=== PATIENT | female | born 1965 | race Caucasian/White ===

== ENCOUNTER 2017-10-19 11:28 | Observation (INO) | payer MEDICAID, OTHER ==
[2017-10-19 11:29] VITALS: BMI 28.3
--- NOTE | 2017-10-19 12:49 | ED PDOC ---
Arrival/HPI - General Chief Complaint: Palpitations Time Seen by Provider: 10/19/17 11:35 Historian: Patient - History of Present Illness Narrative History of Present Illness (Text): 10/19/17 12:49 Kamala Alaniz is a 52 year old female, whose past medical history includes asthma, who presents to the Emergency department complaining of palpitations and dizziness. 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 Patient states symptoms resolved after she relaxed, but notes she was unable to go back to sleep. Patients states this morning, her palpitations and dizziness returned, with dyspnea on exertion. She states that earlier this morning she had some left sided chest discomfort, left sided neck pain. Reports intermittent headaches for several months. While getting triaged, experience episode of dizziness and lightheadedness. Symptom Onset: Gradual Symptom Course: Unchanged Activities at Onset: Light Context: Home Past Medical History - Provider Review Nursing Documentation Reviewed: Yes - Infectious Disease Hx of Infectious Diseases: None - Tetanus Immunization Tetanus Immunization: Unknown - Reproductive Menopause: Yes - Cardiac Hx Cardiac Disorders: No - Pulmonary Hx Respiratory Disorders: Yes Hx Asthma: Yes - Neurological Hx Neurological Disorder: No - HEENT Hx HEENT Disorder: No - Renal Hx Renal Disorder: No - Endocrine/Metabolic Hx Endocrine Disorders: No - Hematological/Oncological Hx Anemia: Yes - Integumentary Hx Dermatological Disorder: No - Musculoskeletal/Rheumatological Hx Musculoskeletal Disorders: No - Gastrointestinal Hx Gastrointestinal Disorders: No - Genitourinary/Gynecological Hx Genitourinary Disorders: No - Psychiatric Hx Psychophysiologic Disorder: No Hx Substance Use: No - Past Surgical History Past Surgical History: No Previous - Anesthesia Hx Anesthesia: No - Suicidal Assessment Feels Threatened In Home Enviroment: No Family/Social History - Physician Review Nursing Documentation Reviewed: Yes Family/Social History: Unknown Family HX Smoking Status: Never Smoked Hx Alcohol Use: No Hx Substance Use: No Allergies/Home Meds Allergies/Adverse Reactions: Allergies No Known Allergies Allergy (Verified 11/23/14 22:47) Review of Systems - Review of Systems Constitutional: Fatigue. absent: Fevers Eyes: absent: Photophobia ENT: absent: Sore Throat Respiratory: absent: SOB, Cough, Wheezing Cardiovascular: Chest Pain, Palpitations, SCOTT. absent: Syncope Gastrointestinal: absent: Abdominal Pain, Diarrhea, Nausea, Vomiting Genitourinary Female: absent: Dysuria, Frequency, Hematuria, Urine Output Changes Musculoskeletal: Neck Pain (+left-sided neck pain) Skin: absent: Rash Neurological: Headache, Dizziness. absent: Focal Weakness, Gait Changes Endocrine: absent: Polyuria Hemo/Lymphatic: absent: Easy Bleeding Psychiatric: absent: Depression Physical Exam - Physical Exam Narrative Physical Exam (Text): Head: Atraumatic. Normocephalic. Eyes: PERRL. EOMI. Conjunctivae are not pale. ENT: Mucous membranes are moist and intact. Oropharynx is clear and symmetric. Neck: Supple. Mild left-sided paraspinal tenderness Full ROM. No JVD. No lymphadenopathy. Cardiovascular: Regular rate. Regular rhythm. No murmurs, rubs, or gallops. Distal pulses are 2+ and symmetric. Pulmonary/Chest: No evidence of respiratory distress. Clear to auscultation bilaterally. No wheezing, rales or rhonchi. Abdominal: Soft and non-distended. There is no tenderness. No rebound, guarding, or rigidity. No organomegaly. Good bowel sounds. Back: No CVA tenderness. No midline tenderness. Extremities: No edema. No cyanosis. No clubbing. Full range of motion in all extremities. No calf tenderness. Skin: Skin is warm and dry. No petechiae. No purpura. Neurological: Alert, awake, and oriented. No slurred speech. No facial droop. Motor and sensory exam intact. No pronator drift. Normal finger to nose. Visual acuity and visual tillman intact. Psychiatric: Good eye contact. Normal interaction, affect, and behavior. Vital Signs Reviewed: Yes Vital Signs Temp Pulse Resp BP Pulse Ox 10/19/17 16:38 75 18 122/63 100 10/19/17 12:25 98.1 F 70 16 115/78 96 Temperature: Afebrile Blood Pressure: Normal Pulse: Regular Respiratory Rate: Normal Appearance: Positive for: Well-Appearing, Non-Toxic, Comfortable Pain Distress: None Mental Status: Positive for: Alert and Oriented X 3 Medical Decision Making ED Course and Treatment: 10/19/17 12:49 Impression: 52 year old female complaining of palpitations, dizziness, headache, and dyspnea. Differential Diagnosis included but are not limited to: CAD vs. arrhythmia vs. PS vs. anemia Plan: -- CT Head w/o contrast -- EKG -- Chest X-ray -- Labs, cardiac enzymes, D-dimer -- Urinalysis -- Reassess and disposition Progress Notes: Patient on initial evaluation is found to have sensation of palpitations, however on monitor she is in normal sinus rhythm. No pleuritic pain. No hypoxa. Denies smoking. Denies family hx of CAD. No prolonged immobilization. No calf pain or swelling. Complains of headache, ct head ordered as persistent and itnermittent for several months. 10/19/17 15:16 CT Head Findings: HEMORRHAGE: No acute parenchymal, subarachnoid nor extra-axial hemorrhage. BRAIN: No mass effect or edema. No atrophy or chronic microvascular ischemic changes. VENTRICLES: Unremarkable. No hydrocephalus. CALVARIUM: No acute calvarial fractures. PARANASAL SINUSES: Unremarkable as visualized. No significant inflammatory changes. . Note is made of of focal leftward deviation of the nasal septum with associated left- sided septal bone spur. MASTOID AIR CELLS: Unremarkable as visualized. No inflammatory changes. OTHER FINDINGS: None. IMPRESSION: No acute intracranial hemorrhage. Chest X-ray Findings: LUNGS: Clear. PLEURA: No pneumothorax or pleural fluid seen. CARDIOVASCULAR: Normal. OSSEOUS STRUCTURES: No significant abnormalities. VISUALIZED UPPER ABDOMEN: Normal. OTHER FINDINGS: None. IMPRESSION: No active disease. Will admit for evaluation of chest pain and palpitations. Ddimer and cxr unremarkable. Will admit to observation. 10/19/17 15:[address] Christensen, who is aware and agrees with plan. Accepts pt in to hospitalist service. Pt will go to Telemetry observation for palpitations and chest pain. - Lab Interpretations Lab Results: 10/19/17 13:51 10/19/17 14:24 Lab Results 10/19/17 14:24: Triglycerides 126, Cholesterol 194, LDL Cholesterol Direct 102, HDL Cholesterol 49 10/19/17 14:24: TSH 3rd Generation 1.49 10/19/17 14:24: Sodium 145, Potassium 4.7, Chloride 106, Carbon Dioxide 28, Anion Gap 16, BUN 15, Creatinine 0.8, Est GFR ( Amer) > 60, Est GFR (Non- Af Amer) > 60, Random Glucose 89, Calcium 9.4, Total Bilirubin 0.4, AST 24, ALT 20, Alkaline Phosphatase 63, Lactate Dehydrogenase 488, Total Creatine Kinase 54 , Troponin I < 0.01, Total Protein 7.5, Albumin 4.3, Globulin 3.2, Albumin/ Globulin Ratio 1.4 10/19/17 13:51: Urine Color Yellow, Urine Appearance Sl cloudy, Urine pH 7.0, Ur Specific [place] 1.020, Urine Protein 30 H, Urine Glucose (UA) Negative, Urine Ketones Negative, Urine Blood Negative, Urine Nitrate Negative, Urine Bilirubin Negative, Urine Urobilinogen 0.2, Ur Leukocyte Esterase Moderate H, Urine RBC Negative, Urine WBC 2 - 5, Urine Bacteria Few, Urine HCG, Qual Negative 10/19/17 13:51: PT 12.3, INR 1.07, APTT 28.0, D-Dimer, Quantitative < 200 10/19/17 13:51: WBC 7.5, RBC 4.79, Hgb 12.9, Hct 39.8, MCV 83.1, MCH 26.9, MCHC 32.4, RDW 15.1 H, Plt Count 196, MPV 11.7 H, Gran % 63.6, Lymph % (Auto) 29.0, [place] % (Auto) 3.7, Eos % (Auto) 3.6, Baso % (Auto) 0.1, Gran # 4.75, Lymph # ( Auto) 2.2, [place] # (Auto) 0.3, Eos # (Auto) 0.3, Baso # (Auto) 0.01 I have reviewed the lab results: Yes - RAD Interpretation Radiology Orders: 10/19/17 12:50 HEAD W/O CONTRAST [CT] Stat CHEST ONE VIEW [RAD] Stat Neurosurgical Nurse: Radiologist - EKG Interpretation EKG Interpretation (Text): 10/19/17 17:11 EKG at 11:36 normal sinus rhythm rate of 80 with nonspecific t wave abnormality Interpreted by ED Physician: Yes Type: 12 lead EKG - Medication Orders Current Medication Orders: Albuterol Sulfate (Albuterol 0.083% Inhal Kristin (2.5 Mg/3 Ml) Ud) 2.5 mg IH [id number] PRN PRN Reason: Shortness of Breath Discontinued Medications Aspirin (Aspirin Chewable) 81 mg PO STAT STA Stop: 10/19/17 17:12 Last Admin: 10/19/17 17:35 Dose: 81 mg - Scribe Statement The provider has reviewed the documentation as recorded by the Michelleibhermann Armijo All medical record entries made by the Michelleibhermann were at my direction and personally dictated by me. I have reviewed the chart and agree that the record accurately reflects my personal performance of the history, physical exam, medical decision making, and the department course for this patient. I have also personally directed, reviewed, and agree with the discharge instructions and disposition. Disposition/Present on Arrival - Present on Arrival Any Indicators Present on Arrival: No History of DVT/PE: No History of Uncontrolled Diabetes: No Urinary Catheter: No History of Decub. Ulcer: No History Surgical Site Infection Following: None - Disposition Have Diagnosis and Disposition been Completed?: Yes Diagnosis: Chest pain, Palpitations Disposition: HOSPITALIZED Disposition Time: 15:30 Patient Plan: Admission, Observation, Telemetry Patient Problems: Current Active Problems Problem Status Onset Chest pain Acute Palpitations Acute Condition: FAIR
[2017-10-19 14:00] LABS: BASO # 0.01 K/mm3 (0.0-2.0); BASO % 0.1 % (0.0-3.0); EOS # 0.3 (0.0-0.7); EOS % 3.6 % (1.5-5.0); GRAN # 4.75 (1.4-6.5); GRAN % 63.6 % (50.0-68.0); HEMOGLOBIN 12.9 g/dL (12.0-16.0); LYMPH # 2.2 (1.2-3.4); MEAN CELL VOLUME 83.1 fl (80.0-105.0); MEAN CORPUSCULAR HEMOGLOBIN 26.9 pg (25.0-35.0); MEAN CORPUSCULAR HGB CONC 32.4 g/dl (31.0-37.0); MEAN PLATELET VOLUME 11.7 fl (7.0-11.0); MONO # 0.3 (0.1-0.6); MONO % 3.7 % (1.0-6.0); RBC 4.79 10^6/uL (3.5-6.1); RED CELL DISTRIBUTION WIDTH 15.1 % (11.5-14.5); URINE BILIRUBIN NEGATIVE (NEGATIVE); URINE BLOOD NEGATIVE (NEGATIVE); URINE GLUCOSE (UA) NEGATIVE (NEGATIVE); URINE LEUKOCYTE ESTERASE MODERATE Leu/uL (NEGATIVE); URINE PROTEIN 30 mg/dL (<30 mg/dL); URINE UROBILINOGEN 0.2 E.U./dL (<1 E.U./dL); WHITE BLOOD COUNT 7.5 10^3/ul (4.5-11.0)
[2017-10-19 14:06] LABS: URINE APPEARANCE SL CLOUDY (CLEAR); URINE COLOR YELLOW (YELLOW)
[2017-10-19 14:11] LABS: HCG,QUALITATIVE URINE NEGATIVE (NEGATIVE)
[2017-10-19 14:15] LABS: URINE BACTERIA FEW (NEG); URINE RBC NEGATIVE /hpf (0-2)
[2017-10-19 14:20] LABS: D DIMER < 200 ng/mL (0-243); INR 1.07 (0.93-1.08); PROTHROMBIN TIME 12.3 SECONDS (9.4-12.5)
[2017-10-19 14:40] LABS: ALB/GLOB RATIO 1.4 (1.1-1.8); ALBUMIN 4.3 g/dL (3.0-4.8); ALT/SGPT 20 U/L (7-56); AST/SGOT 24 U/L (14-36); BLOOD UREA NITROGEN 15 mg/dL (7-21); CALCIUM 9.4 mg/dL (8.4-10.5); GFR AFRICAN-AMERICAN > 60; GFR NON-AFRICAN AMERICAN > 60
[2017-10-19 14:51] LABS: TROPONIN I < 0.01 ng/mL
--- NOTE | 2017-10-19 15:17 | CT ---
PROCEDURE: CT HEAD WITHOUT CONTRAST. HISTORY: Dizzy, headache COMPARISON: None available. TECHNIQUE: Axial computed tomography images were obtained through the head/brain without intravenous contrast. Radiation dose: Total exam DLP = 902.09 mGy-cm. This CT exam was performed using one or more of the following dose reduction techniques: Automated exposure control, adjustment of the mA and/or kV according to patient size, and/or use of iterative reconstruction technique. FINDINGS: HEMORRHAGE: No acute parenchymal, subarachnoid nor extra-axial hemorrhage. BRAIN: No mass effect or edema. No atrophy or chronic microvascular ischemic changes. VENTRICLES: Unremarkable. No hydrocephalus. CALVARIUM: No acute calvarial fractures. PARANASAL SINUSES: Unremarkable as visualized. No significant inflammatory changes. . Note is made of of focal leftward deviation of the nasal septum with associated left-sided septal bone spur. MASTOID AIR CELLS: Unremarkable as visualized. No inflammatory changes. OTHER FINDINGS: None. IMPRESSION: No acute intracranial hemorrhage.
--- NOTE | 2017-10-19 15:54 | RAD ---
PROCEDURE: CHEST RADIOGRAPH, 1 VIEW HISTORY: Shortness of breath COMPARISON: None available. FINDINGS: LUNGS: Clear. PLEURA: No pneumothorax or pleural fluid seen. CARDIOVASCULAR: Normal. OSSEOUS STRUCTURES: No significant abnormalities. VISUALIZED UPPER ABDOMEN: Normal. OTHER FINDINGS: None. IMPRESSION: No active disease.
--- NOTE | 2017-10-19 16:48 | CP.PCM.HP ---
History of Present Illness - History of Present Illness History of Present Illness: 52 year old female with a past medical history of asthma who presents with an episode of palpitation, dizziness, and light headedness today. She reports lying down and then experiencing sudden-onset palpitations and dyspnea that last for 5-6 minutes. She reports having a similar episode two weeks ago and came to this here ED. She is worried that it is her heart. She denies nausea, vomiting, syncope, trauma, any changes in medication or lifestyle. She denies any relieving, worsening, or precipitating factors in regards to the palpitations She reports her last asthma attack was 3 weeks ago and that she treats it with albuterol. Patient also notes she has been experiencing intermittent left-sided headaches for the past month, for which she has been evaluated for in the past. Patient denies any chest pain, abdominal pain, polyuria, dysuria,nausea, vomiting, diarrhea, back pain, focal deficits, or any other complaints. Past Medical History: Asthma Past Surgical history: tubal ligation Allergies: NKDA and NKA Family history: Mother had diabetes, high cholesterol, and heart problems Social: does not work, raising two kids or looks after two kids; denies alcohol , tobacco, or illicit drug use Two separate Burmese translation services were utilized: [id number] Present on Admission - Present on Admission Any Indicators Present on Admission: No Review of Systems - Cardiovascular Cardiovascular: Lightheadedness, Rapid Heart Rate. absent: Dyspnea on Exertion - Respiratory Respiratory: Dyspnea - Gastrointestinal Gastrointestinal: absent: Change in Bowel Habits, Melena, Vomiting - Genitourinary Genitourinary: absent: Change in Urinary Stream, Difficulty Urinating, Hematuria - Musculoskeletal Musculoskeletal: absent: Abnormal Gait, Arthralgias, Joint Swelling - Integumentary Integumentary: absent: Alopecia, Bleeding Lesions, Pruritus, Rash - Neurological Neurological: Dizziness. absent: Abnormal Hearing, Burning Sensations, Numbness - Psychiatric Psychiatric: absent: Confusion, Hopelessness - Endocrine Endocrine: absent: Change in Body Appearance, Polydipsia - Hematologic/Lymphatic Hematologic: absent: Easy Bleeding, Easy Bruising Past Patient History - Infectious Disease Hx of Infectious Diseases: None - Tetanus Immunizations Tetanus Immunization: Unknown - Past Social History Smoking Status: Never Smoked - CARDIAC Hx Cardiac Disorders: No - PULMONARY Hx Respiratory Disorders: Yes Hx Asthma: Yes - NEUROLOGICAL Hx Neurological Disorder: No - HEENT Hx HEENT Problems: No - RENAL Hx Chronic Kidney Disease: No - ENDOCRINE/METABOLIC Hx Endocrine Disorders: No - HEMATOLOGICAL/ONCOLOGICAL Hx Anemia: Yes - INTEGUMENTARY Hx Dermatological Problems: No - MUSCULOSKELETAL/RHEUMATOLOGICAL Hx Musculoskeletal Disorders: No - GASTROINTESTINAL Hx Gastrointestinal Disorders: No - GENITOURINARY/GYNECOLOGICAL Hx Genitourinary Disorders: No - PSYCHIATRIC Hx Psychophysiologic Disorder: No Hx Substance Use: No - ANESTHESIA Hx Anesthesia: No Meds Allergies/Adverse Reactions: Allergies Allergy/AdvReac Type Severity Reaction Status Date / Time No Known Allergies Allergy Verified 11/23/14 22:47 Physical Exam - Constitutional Additional comments: anxious - Head Exam Head Exam: ATRAUMATIC, NORMOCEPHALIC - Eye Exam Additional comments: left eye injected and red - ENT Exam ENT Exam: Mucous Membranes Moist - Neck Exam Neck exam: Positive for: Normal Inspection - Respiratory Exam Respiratory Exam: Clear to Auscultation Bilateral. absent: Wheezes Additional comments: RR 18 - Cardiovascular Exam Cardiovascular Exam: RRR, +S1, +S2 - GI/Abdominal Exam GI & Abdominal Exam: Normal Bowel Sounds, Soft - Extremities Exam Extremities exam: Positive for: normal inspection. Negative for: calf tenderness - Back Exam Back exam: NORMAL INSPECTION. absent: CVA tenderness (L), CVA tenderness (R) - Neurological Exam Neurological exam: Alert, Oriented x3 - Psychiatric Exam Psychiatric exam: Anxious - Skin Skin Exam: Dry, Intact, Normal Color, Warm Results - Vital Signs Recent Vital Signs: Last Vital Signs Temp 98.1 F 10/19/17 12:25 Pulse 70 10/19/17 12:25 Resp 16 10/19/17 12:25 BP 115/78 10/19/17 12:25 Pulse Ox 96 10/19/17 12:25 - Labs Result Diagrams: 10/19/17 13:51 10/19/17 14:24 Labs: Laboratory Results - last 24 hr 10/19/17 10/19/17 10/19/17 13:51 13:51 13:51 WBC 7.5 RBC 4.79 Hgb 12.9 Hct 39.8 MCV 83.1 MCH 26.9 MCHC 32.4 RDW 15.1 H Plt Count 196 MPV 11.7 H Gran % 63.6 Lymph % (Auto) 29.0 [place] % (Auto) 3.7 Eos % (Auto) 3.6 Baso % (Auto) 0.1 Gran # 4.75 Lymph # (Auto) 2.2 [place] # (Auto) 0.3 Eos # (Auto) 0.3 Baso # (Auto) 0.01 PT 12.3 INR 1.07 APTT 28.0 D-Dimer, Quantitative < 200 Sodium Potassium Chloride Carbon Dioxide Anion Gap BUN Creatinine Est GFR ( Amer) Est GFR (Non-Af Amer) Random Glucose Calcium Total Bilirubin AST ALT Alkaline Phosphatase Lactate Dehydrogenase Total Creatine Kinase Troponin I Total Protein Albumin Globulin Albumin/Globulin Ratio Urine Color Yellow Urine Appearance Sl cloudy Urine pH 7.0 Ur Specific [place] 1.020 Urine Protein 30 H Urine Glucose (UA) Negative Urine Ketones Negative Urine Blood Negative Urine Nitrate Negative Urine Bilirubin Negative Urine Urobilinogen 0.2 Ur Leukocyte Esterase Moderate H Urine RBC Negative Urine WBC 2 - 5 Urine Bacteria Few Urine HCG, Qual Negative 10/19/17 14:24 WBC RBC Hgb Hct MCV MCH MCHC RDW Plt Count MPV Gran % Lymph % (Auto) [place] % (Auto) Eos % (Auto) Baso % (Auto) Gran # Lymph # (Auto) [place] # (Auto) Eos # (Auto) Baso # (Auto) PT INR APTT D-Dimer, Quantitative Sodium 145 Potassium 4.7 Chloride 106 Carbon Dioxide 28 Anion Gap 16 BUN 15 Creatinine 0.8 Est GFR ( Amer) > 60 Est GFR (Non-Af Amer) > 60 Random Glucose 89 Calcium 9.4 Total Bilirubin 0.4 AST 24 ALT 20 Alkaline Phosphatase 63 Lactate Dehydrogenase 488 Total Creatine Kinase 54 Troponin I < 0.01 Total Protein 7.5 Albumin 4.3 Globulin 3.2 Albumin/Globulin Ratio 1.4 Urine Color Urine Appearance Urine pH Ur Specific [place] Urine Protein Urine Glucose (UA) Urine Ketones Urine Blood Urine Nitrate Urine Bilirubin Urine Urobilinogen Ur Leukocyte Esterase Urine RBC Urine WBC Urine Bacteria Urine HCG, Qual Assessment & Plan - Assessment and Plan (Free Text) Assessment: 52 year old female with asthma who presents with two episodes of palpitations, light-headedness, and dizziness in a 2 week span. Plan: 1) Palpitations - EKG shows NSR, with possible left atrial enlargement, non-specific T-wave abnormalities - Chest X-ray interpreted as no active disease - Cardiology consulted, Dr. Winston - Serial troponins, initial negative - Transthoracic Echocardiogram ordered - TSH, HgA1c, Lipid Panel - Vitals q4h 2) Asthma - Albuterol q4h PRN for shortness of breath 3) DVT/GI prophylaxis - SCD - GI prophylaxis no indicated at this time - Date & Time Date: 10/19/17 Time: 16:52
[2017-10-19 16:54] LABS: HDL CHOLESTEROL 49 mg/dL (29-60)
[2017-10-19 17:05] LABS: LDL CHOLESTEROL 102 mg/dL (0-129)
[2017-10-19] MEDS ORDERED: Albuterol 0.083% Inhal Sol (2.5 mg/3 mL) UD IH PRN (17:07)
[2017-10-19 21:35] LABS: TROPONIN I < 0.01 ng/mL
--- NOTE | 2017-10-19 21:43 | CARD ---
APPROVED REPORT EKG Measurement Heart [id number] <Conclusion> Normal sinus rhythm Possible Left atrial enlargement Nonspecific T wave abnormality Abnormal ECG
[2017-10-20 06:09] VITALS: O2SAT 96
[2017-10-20 06:47] LABS: BASO # 0.01 K/mm3 (0.0-2.0); BASO % 0.2 % (0.0-3.0); EOS # 0.4 (0.0-0.7); EOS % 5.9 % (1.5-5.0); GRAN # 3.27 (1.4-6.5); GRAN % 54.7 % (50.0-68.0); HEMOGLOBIN 12.4 g/dL (12.0-16.0); LYMPH # 1.9 (1.2-3.4); LYMPH % 32.5 % (22.0-35.0); MEAN CELL VOLUME 83.4 fl (80.0-105.0); MEAN CORPUSCULAR HEMOGLOBIN 26.8 pg (25.0-35.0); MEAN CORPUSCULAR HGB CONC 32.1 g/dl (31.0-37.0); MONO # 0.4 (0.1-0.6); MONO % 6.7 % (1.0-6.0); RBC 4.63 10^6/uL (3.5-6.1); RED CELL DISTRIBUTION WIDTH 15.2 % (11.5-14.5)
[2017-10-20 07:13] LABS: TROPONIN I < 0.01 ng/mL
[2017-10-20 07:32] LABS: ALB/GLOB RATIO 1.3 (1.1-1.8); ALBUMIN 3.9 g/dL (3.0-4.8); ALT/SGPT 26 U/L (7-56); AST/SGOT 25 U/L (14-36); BLOOD UREA NITROGEN 15 mg/dL (7-21); CALCIUM 9.2 mg/dL (8.4-10.5); GFR AFRICAN-AMERICAN > 60; GFR NON-AFRICAN AMERICAN > 60
--- NOTE | 2017-10-20 12:25 | CP.PCM.DIS ---
Provider - Provider Date of Admission: 10/19/17 15:39 Attending physician: Wayne Cazares MD Primary care physician: Dina Boss MD Consults: Dr. Chandana Winston Time Spent in preparation of Discharge (in minutes): 35 Hospital Course - Lab Results Lab Results: Most Recent Lab Values WBC 6.0 10^3/ul (4.5-11.0) 10/20/17 05:30 RBC 4.63 10^6/uL (3.5-6.1) 10/20/17 05:30 Hgb 12.4 g/dL (12.0-16.0) 10/20/17 05:30 Hct 38.6 % (36.0-48.0) 10/20/17 05:30 MCV 83.4 fl (80.0-105.0) 10/20/17 05:30 MCH 26.8 pg (25.0-35.0) 10/20/17 05:30 MCHC 32.1 g/dl (31.0-37.0) 10/20/17 05:30 RDW 15.2 % (11.5-14.5) H 10/20/17 05:30 Plt Count 177 10^3/uL (120.0-450.0) 10/20/17 05:30 MPV 12.0 fl (7.0-11.0) H 10/20/17 05:30 Gran % 54.7 % (50.0-68.0) 10/20/17 05:30 Lymph % (Auto) 32.5 % (22.0-35.0) 10/20/17 05:30 [place] % (Auto) 6.7 % (1.0-6.0) H 10/20/17 05:30 Eos % (Auto) 5.9 % (1.5-5.0) H 10/20/17 05:30 Baso % (Auto) 0.2 % (0.0-3.0) 10/20/17 05:30 Gran # 3.27 (1.4-6.5) 10/20/17 05:30 Lymph # (Auto) 1.9 (1.2-3.4) 10/20/17 05:30 [place] # (Auto) 0.4 (0.1-0.6) 10/20/17 05:30 Eos # (Auto) 0.4 (0.0-0.7) 10/20/17 05:30 Baso # (Auto) 0.01 K/mm3 (0.0-2.0) 10/20/17 05:30 PT 12.3 SECONDS (9.4-12.5) 10/19/17 13:51 INR 1.07 (0.93-1.08) 10/19/17 13:51 APTT 28.0 Seconds (25.1-36.5) 10/19/17 13:51 D-Dimer, Quantitative < 200 ng/mL (0-243) 10/19/17 13:51 Sodium 144 mmol/L (132-148) 10/20/17 05:30 Potassium 4.4 mmol/L (3.6-5.0) 10/20/17 05:30 Chloride 108 mmol/L (98-107) H 10/20/17 05:30 Carbon Dioxide 27 mmol/L (21-33) 10/20/17 05:30 Anion Gap 14 (10-20) 10/20/17 05:30 BUN 15 mg/dL (7-21) 10/20/17 05:30 Creatinine 0.9 mg/dl (0.7-1.2) 10/20/17 05:30 Est GFR ( Amer) > 60 10/20/17 05:30 Est GFR (Non-Af Amer) > 60 10/20/17 05:30 Random Glucose 84 mg/dL (70-110) 10/20/17 05:30 Hemoglobin A1c 5.8 % (4.2-6.5) 10/19/17 13:51 Calcium 9.2 mg/dL (8.4-10.5) 10/20/17 05:30 Magnesium 2.1 mg/dL (1.7-2.2) 10/19/17 21:11 Total Bilirubin 0.4 mg/dL (0.2-1.3) 10/20/17 05:30 AST 25 U/L (14-36) 10/20/17 05:30 ALT 26 U/L (7-56) 10/20/17 05:30 Alkaline Phosphatase 58 U/L (38-126) 10/20/17 05:30 Lactate Dehydrogenase 488 U/L (333-699) 10/19/17 14:24 Total Creatine Kinase 54 U/L (35-230) 10/19/17 14:24 Troponin I < 0.01 ng/mL 10/20/17 05:30 Total Protein 6.9 g/dL (5.8-8.3) 10/20/17 05:30 Albumin 3.9 g/dL (3.0-4.8) 10/20/17 05:30 Globulin 3.0 gm/dL 10/20/17 05:30 Albumin/Globulin Ratio 1.3 (1.1-1.8) 10/20/17 05:30 Triglycerides 126 mg/dL (35-160) 10/19/17 14:24 Cholesterol 194 mg/dL (130-200) 10/19/17 14:24 LDL Cholesterol Direct 102 mg/dL (0-129) 10/19/17 14:24 HDL Cholesterol 49 mg/dL (29-60) 10/19/17 14:24 TSH 3rd Generation 1.49 mIU/mL (0.46-4.68) 10/19/17 14:24 Urine Color Yellow (YELLOW) 10/19/17 13:51 Urine Appearance Sl cloudy (CLEAR) 10/19/17 13:51 Urine pH 7.0 (4.7-8.0) 10/19/17 13:51 Ur Specific [place] 1.020 (1.005-1.035) 10/19/17 13:51 Urine Protein 30 mg/dL (<30 mg/dL) H 10/19/17 13:51 Urine Glucose (UA) Negative mg/dL (NEGATIVE) 10/19/17 13:51 Urine Ketones Negative mg/dL (NEGATIVE) 10/19/17 13:51 Urine Blood Negative (NEGATIVE) 10/19/17 13:51 Urine Nitrate Negative (NEGATIVE) 10/19/17 13:51 Urine Bilirubin Negative (NEGATIVE) 10/19/17 13:51 Urine Urobilinogen 0.2 E.U./dL (<1 E.U./dL) 10/19/17 13:51 Ur Leukocyte Esterase Moderate [place]/uL (NEGATIVE) H 10/19/17 13:51 Urine RBC Negative /hpf (0-2) 10/19/17 13:51 Urine WBC 2 - 5 /hpf (0-6) 10/19/17 13:51 Urine Bacteria Few (NEG) 10/19/17 13:51 Urine HCG, Qual Negative (NEGATIVE) 10/19/17 13:51 - Hospital Course Hospital Course: 52 year old female with a past medical history of asthma who presents with an episode of palpitation, dizziness, and light headedness today. She reports lying down and then experiencing sudden-onset palpitations and dyspnea that last for 5-6 minutes. She reports having a similar episode two weeks ago and came to ED. Initial EKG and serial troponins were negative for TX. CT of the head demonstrated no abnormalities. Patient was admitted on telemetry for observation overnight with cardiology consulted. No abnormal electrical activity of the heart was observed for the duration of her stay. The patient was informed that given her palpitations are transient she could still be experiencing a cardiac arrhythmia among other things that could contribute to her symptoms. Cardiology deemed the patient stable to obtain an outpatient evaluation for her palpitations. The patient was also given guidance on how to obtain Medicaid and discharged with the below written instructions and recommendations. - Date & Time of H&P Date of H&P: 10/20/17 Time of H&P: 13:08 Discharge Exam - Head Exam Head Exam: ATRAUMATIC, NORMOCEPHALIC - Eye Exam Eye Exam: EOMI, Normal appearance - ENT Exam ENT Exam: Mucous Membranes Moist, Normal Oropharynx - Neck Exam Neck exam: Normal Inspection - Respiratory Exam Respiratory Exam: Clear to PA & Lateral, NORMAL BREATHING PATTERN. absent: Accessory Muscle Use - Cardiovascular Exam Cardiovascular Exam: RRR, +S1, +S2 - GI/Abdominal Exam GI & Abdominal Exam: Normal Bowel Sounds - Extremities Exam Extremities exam: normal inspection - Neurological Exam Neurological exam: Alert, CN II-XII Intact, Oriented x3 - Psychiatric Exam Psychiatric exam: Normal Affect, Normal Mood - Skin Skin Exam: Dry, Intact, Normal Color, Warm Discharge Plan - Follow Up Plan Condition: FAIR Disposition: HOME/ ROUTINE Instructions: Palpitations Additional Instructions: 1) Patient to follow up with a primary medical doctor within one week of discharge. 2) Patient should contact the Medicaid office in [place] to establish care with a physician. 3) Patient should make an appointment with Dr. Lundberg, brass finisher. Referrals: Paddy Lundberg MD [Staff Provider] - Dina Boss MD [Primary Care Provider] - Follow up with primary
--- NOTE | 2017-10-20 13:43 | CARD ---
APPROVED REPORT EXAM: Two-dimensional and M-mode echocardiogram with Doppler and color Doppler. INDICATION VALVULAR HEART DISEASE 2D DIMENSIONS Left Atrium (2D)2.9 (1.6-4.0cm)IVSd0.8 (0.7-1.1cm) LVDd4.0 (3.9-5.9cm)PWd0.9 (0.7-1.1cm) LVDs3.0 (2.5-4.0cm)FS (%) 23.5 % LVEF (%)47.6 (>50%) M-Mode DIMENSIONS Aortic Root2.20 (2.2-3.7cm)Aortic Cusp Exc.1.40 (1.5-2.0cm) Aortic Valve AoV Peak Oibdhxpx779.0cm/Mitali Peak GR.5mmHg Mitral Valve E/A ratio0.0 TDI E/Lateral E'0.0E/Medial E'0.0 Tricuspid Valve TR Peak [id number]/sRAP [id number] Peak Gr.22mmHg [id number] LEFT VENTRICLE The left ventricle is normal size. There is normal left ventricular wall thickness. The systolic function is mildly impaired. There is global hypokinesis of the left ventricle. Transmitral Doppler flow pattern is abnormal. No left ventricle thrombus noted on this study. RIGHT VENTRICLE The right ventricle is normal size. There is normal right ventricular wall thickness. The right ventricular systolic function is normal. ATRIA The left atrium size is normal. The right atrium size is normal. AORTIC VALVE The aortic valve is mildly thickened. No aortic regurgitation is present. There is no aortic valvular stenosis. MITRAL VALVE The mitral valve is mildly thickened. There is no mitral valve regurgitation noted. There is no mitral valve stenosis. TRICUSPID VALVE There is trace tricuspid regurgitation. PULMONIC VALVE There is trace pulmonic valvular regurgitation. GREAT VESSELS The aortic root is normal in size. PERICARDIAL EFFUSION There is no pericardial effusion. <Conclusion> The left ventricle is normal size. There is normal left ventricular wall thickness. The systolic function is mildly impaired. There is global hypokinesis of the left ventricle. Transmitral Doppler flow pattern is abnormal. No left ventricle thrombus noted on this study.
[2017-10-20 14:04] VITALS: BP 106/69; PULSE 83; RESP 21; TEMP 98.1
--- NOTE | 2017-10-20 21:57 | CON ---
DATE: 10/20/2017 CARDIOLOGY CONSULTATION HISTORY OF PRESENT ILLNESS: The patient is a 52-year-old woman with a history of asthma, who presents with transient palpitations. She denies angina. No previous cardiac history. She feels excellent today. No shortness of breath. No chest pain. She denies smoking. REVIEW OF SYSTEMS: Fourteen-point review of systems is reviewed in detail. No cardiac symptoms were elicited. PHYSICAL EXAMINATION: VITAL SIGNS: Blood pressure is 108/66, heart rate in the 60s. NECK: Negative JVD. LUNGS: Without rales. HEART: Reveals S1, S2. EXTREMITIES: Without edema. LABORATORY DATA: Hemoglobin is 12.4. BUN and creatinine are negative. Troponins are negative x3. IMPRESSION: 1. Palpitations. 2. Likely benign palpitations. 3. Nonspecific ST-T changes on EKG. 4. No evidence for acute coronary syndrome. 5. Asthma. Given these findings, patient's echocardiogram, we will discontinue telemetry today. DISPOSITION: Will be back to the primary care doctor. Chandana Winston MD
== END 2017-10-20 14:27 | disposition home or self-care (01) ==
LOC: ED 11:28 → ERH 15:39 → 2RNO 18:18
PROVIDERS: ADMIT Internal Medicine; ATTEND Internal Medicine
DX: R00.2 Palpitations (principal); J45.909 Unspecified asthma, uncomplicated; R07.9 Chest pain, unspecified; D64.9 Anemia, unspecified; Z83.3 Family history of diabetes mellitus; Z82.49 Family history of ischemic heart disease and other diseases of the circulatory system
CPT/HCPCS: 36415; 70450; 71045; 80053; 80061; 81001; 82550; 83036; 83615; 83735; 84443; 84484; 84703; 85025; 85378; 85610; 85730; 87086; 93005; 93306; 99285; G0378